=== PATIENT | male | born 1950 | race Caucasian/White ===

== ENCOUNTER → 2021-02-03 | Day surgery (SDC) | payer MEDICARE ==
[~2021-02-03] VITALS: Ht 177.8 cm; Wt 130.6 kg
[~2021-02-03] MED LIST: ASPIRIN EC81 MG PO; CLARITIN10 MG PO; COREG25 M1 PO; FLOMAX0.4 MG PO; LIPITOR 10MG TA10 MG PO; MULTI FOR HIM1 EACH PO; NORVASC5 MG PO; PROSCAR5 M1 PO; VITAMIN D3250 MC2 PO
[2021-02-03 09:42] LABS: HCT 42.8 % (42.0-52.0); HGB 14.8 g/dl (13.2-18.0); MCHC 34.6 g/dL (32.0-36.0); MCV 92.6 fL (78.0-100.0); MPV 9.8 fL (6.0-9.5); RBC 4.62 M/uL (4.70-6.00); RDW 12.7 % (11.5-14.0); WBC 6.2 K/uL (4.0-10.5)
[2021-02-03 09:52] LABS: ALBUMIN 3.7 g/dL (3.4-5.0); BILIRUBIN - TOTAL 1.7 mg/dL (0.2-1.0); BUN/CREAT RATIO (CALC) 20.3 RATIO; CREATININE 0.79 mg/dL (0.67-1.17); GLOBULIN (CALCULATION) 3.6 g/dL; POTASSIUM 4.3 mmol/L (3.5-5.1); TOTAL PROTEIN 7.3 g/dL (6.4-8.2)
== END | disposition home or self-care (01) ==
LOC: FAS 08:37
PROVIDERS: Surgery
DX: Z12.11 Encounter for screening for malignant neoplasm of colon (principal); D12.3 Benign neoplasm of transverse colon; I10 Essential (primary) hypertension; E78.00 Pure hypercholesterolemia, unspecified; Z86.010 Personal history of colon polyps; Z80.0 Family history of malignant neoplasm of digestive organs; Z88.1 Allergy status to other antibiotic agents; Z79.82 Long term (current) use of aspirin; Z79.899 Other long term (current) drug therapy
CPT/HCPCS: 36415; 80053; J2704; J7120